=== PATIENT | female | born 1970 | race Caucasian/White ===

== ENCOUNTER 2016-12-04 18:05 | Emergency (ER) | payer MEDICAID, OTHER ==
[~2016-12-04] VITALS: Ht 154.9 cm; Wt 45.0 kg
[2016-12-04 18:10] VITALS: Ht 154.9 cm; Wt 45.0 kg
[2016-12-04] MEDS ORDERED: MINE133E23 PR (18:40)
[2016-12-04] MEDS ORDERED: POLY17PO6 PO (18:40)
--- NOTE | 2016-12-04 18:42 | ERD ---
ER Documentation Chief Complaint Date/Time DATE: 12/04/16 TIME: 18:41 Chief Complaint HARD STOOLS X 2 WEEKS HPI This 46-year-old female complains of 2 weeks of constipation. She says she tries to have bowel movements and has a lot of straining and passing some small balls of stool. No abdominal pain no rectal bleeding. She says she is staying hydrated. She has had this problem for times in the past before per ROS All systems reviewed and are negative except as per history of present illness. Medications Home Meds Active Scripts Polyethylene Glycol* (Miralax*) 17 Gm Powd.pack, 17 GM PO BID for cons, #60 PACKET Prov:LEKKOS,APOSTOLOS A. DO 12/04/16 Mineral Oil* (Fleet* Mineral Oil Enema) 133 Ml Oil, 133 ML NM NEEDED Y for CONSTIPATION, #2 ENEMA Prov:LEKKOS,APOSTOLOS A. DO 12/04/16 FmHx Family History: No coronary disease Physical Exam Vitals Vital Signs Date Time Temp Pulse Resp B/P Pulse Ox O2 Delivery O2 Flow Rate FiO2 12/04/16 18:10 98.0 98 18 127/61 99 Physical Exam Const: Well-developed, well-nourished Head: Atraumatic, normocephalic Eyes: Normal Conjunctiva, PERRLA, EOMI, normal sclera, no nystagmus ENT: Normal External Ears, Nose and Mouth, moist mucus membranes. Neck: Full range of motion. No meningismus, no lymphadenopathy. Resp: Clear to auscultation bilaterally, no wheezing, rhonchi, rales Cardio: Regular rate and rhythm, no murmurs, S1 S2 present Abd: Soft, non tender x 4, non distended. Normal bowel sounds, no guarding or rebound, no pulsitile abdominal masses or bruits Rectal: There is stool in the vault, no blood, no masses palpated Skin: No petechiae or rashes, no ecchymosis , no maculopapular rash Back: No midline or flank tenderness Ext: No cyanosis, or edema, FROM x 4, normal inspection, neurovascularly intact x 4 Neur: Awake and alert, STR 5/5 x 4, sensation intact x 4, no focal findings, cerebellum intact Psych: Normal Mood and Affect Procedures/MDM Treat with MiraLAX and Fleet enema Departure Diagnosis: Primary Impression: Constipation Constipation type: unspecified constipation type Qualified Code: K59.00 - Constipation, unspecified constipation type Condition: Stable Patient Instructions: Constipation (Adult) Referrals: NO PRIMARY,CARE PHYSICIAN (PCP) MIKE VALENCIA DO Dec 04, 2016 18:42
== END 2016-12-04 19:00 | disposition home or self-care (01) ==
LOC: FTE 18:05
DX: K59.00 Constipation, unspecified (principal)
CPT/HCPCS: 99283

== ENCOUNTER 2017-01-07 12:04 | Emergency (ER) | payer MEDICAID ==
[~2017-01-07] VITALS: Ht 157.5 cm; Wt 39.0 kg
[~2017-01-07 12:04] MED LIST: MINE133E23 PR; POLY17PO6 PO
[2017-01-07 12:08] VITALS: Ht 157.5 cm; Wt 39.0 kg
--- NOTE | 2017-01-07 13:05 | ERD ---
ER Documentation Chief Complaint Date/Time DATE: 01/07/17 TIME: 13:04 Chief Complaint LEFT HAND FEELS COLD TODAY, GOOD CAP REFILL HPI 46-year-old female with a history of seizures, stroke diabetes hyperlipidemia, presents with left arm and hand coldness that started at 8:30 PM last night, lasting for 30 seconds, on and off. Patient states that there is no eliciting factors to this, it developed spontaneously, and is intermittent. She has no numbness, weakness or pain. No history of seizures related to this. ROS All systems reviewed and are negative except as per history of present illness. Medications Home Meds Active Scripts Polyethylene Glycol* (Miralax*) 17 Gm Powd.pack, 17 GM PO BID for cons, #60 PACKET Prov:BRENTON VALENCIASTLINDA Watts. DO 12/04/16 Mineral Oil* (Fleet* Mineral Oil Enema) 133 Ml Oil, 133 ML MA NEEDED Y for CONSTIPATION, #2 ENEMA Prov:MIKE VALENCIA DO 12/04/16 PMhx/Soc History of Surgery: No Anesthesia Reaction: No Hx Neurological Disorder: Yes (TIA, Seizures) Hx Respiratory Disorders: No Hx Cardiac Disorders: No Hx Psychiatric Problems: No Hx Miscellaneous Medical Probl: Yes (DM, ) Hx Alcohol Use: No Hx Substance Use: No Hx Tobacco Use: No Smoking Status: Never smoker Physical Exam Vitals Vital Signs Date Time Temp Pulse Resp B/P Pulse Ox O2 Delivery O2 Flow Rate FiO2 01/07/17 12:08 99.3 102 18 121/63 99 Physical Exam General: Well-developed, well-nourished. The patient appears in no acute distress. HEENT: Head is normocephalic, atraumatic. No scleral icterus. Pupils are equal , round, and reactive. Oral mucous membranes are moist. No pharyngeal erythema. Neck: Supple. Nontender. Lungs: Clear to auscultation. Normal air movement. Heart: Regular rate and rhythm. S1 and S2 are normal. No murmurs, gallops, or rubs. Abdomen: Soft, nontender, nondistended. Bowel sounds are normoactive. Extremities: No clubbing or cyanosis. Normal pulses. Moving extremities x 4. No weakness. No cyanosis, capillary refill less than 2 seconds to both 6 extremities upper and lower. She has no lymphatic streaking, no erythema. There is no warmth, no edema. Neurologic: Alert and oriented 3. No focal deficits. Speech and gait normal. Cranial nerves II 12 grossly intact. Strength upper extremities and lower extremities 5 out of 5 bilaterally. Skin: Normal turgor. No rash or lesions. Results 24 hrs Laboratory Tests Test 01/07/17 13:27 Bedside Glucose 208mg/dL 12-lead EKG(interpreted by supervising physician): by Dr Gardiner Rate/Rhythm: Normal Sinus Rhythm, rate of 86 QRS, ST, T-waves: No changes consistent w/ acute ischemia, no intervals, no dysrhythmias, no ectopy Impression: No evidence of ischemia or arrhythmia DIAGNOSTIC IMAGING REPORT Patient: ARTURO BUNN : 1970 Age: 46 Sex: F MR #: [id number] [facility] #: [id number] DOS: 01/07/17 1247 Ordering MD: TRINI CARRERA PA-C Location: [facility] Room/Bed: PROCEDURE: CT head without intravenous contrast CLINICAL INDICATION: Left arm cold temperature paresthesias. COMPARISON: None relevant listed. TECHNIQUE: Axial CT images from skull base to vertex with coronal and sagittal reformats. DOSE: The estimated administered radiation dose was CTDI vol = 45 mGy. DLP = 720 mGy-cm. One or more of the following dose reduction techniques were used: automated exposure control, adjustment of the mA and/or kV according to patient size, or use of iterative reconstruction. FINDINGS: Parenchyma: Old infarction in the right parietal and temporal lobes as well as the left superior temporal gyrus. Large amount of periventricular and subcortical white matter hypodensity, a nonspecific finding often associated with chronic microangiopathy. Ventricles: Moderate generalized volume with proportionate ex vacuo ventricular dilation. Extra-axial spaces: No herniation or midline shift. Paranasal sinuses: Clear. Mastoids and middle ears: Clear. Visualized orbits: Normal. Vessels: No calcified atherosclerotic arterial plaque identified. Bones: Normal. Extracranial soft tissues: Normal. Additional comment: None. IMPRESSION: 1. 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 2. Large amount of white matter changes, a nonspecific finding often associated with chronic microangiopathy. 3. Senescent changes characterized by volume loss. If there is high clinical suspicion for infarction, MRI would provide additional information. RPTAT: PP Physician Kristi Date Time Electronically viewed and signed by Physician Kristi on 01/07/2017 15: 04 LG/ DIAGNOSTIC IMAGING REPORT Patient: ARTURO BUNN : 1970 Age: 46 Sex: F MR #: [id number] DOS: 01/07/17 1247 Ordering MD: TRINI CARRERA PA-C Location: [facility] Room/Bed: PROCEDURE: Chest Radiograph. CLINICAL INDICATION: Cough. TECHNIQUE: Single frontal chest radiograph. COMPARISON: None available FINDINGS: The cardiomediastinal silhouette is within normal limits. No infiltrate or effusion is seen. The bones are intact. IMPRESSION: 1. Unremarkable chest radiograph. RPTAT: KK .Franklyn Desouza MD, MD Date Time Electronically viewed and signed by .Franklyn Desouza MD, on 2016 13:38 .B/ CC: TRINI CARRERA PA-C Procedures/MDM 46-year-old female presents with paresthesias, she feels a cold sensation to her left upper extremity. Patient presents with a normal EKG, normal chest x- ray, she has hyperglycemia however unlikely diabetic ketoacidosis. CT scan of the head was obtained shows old infarcts, and history is not concerning for TIA or stroke. There is no evidence of acute intra-cranial hemorrhage, mass-effect , or acute ischemia. Symptoms began at 830 last night and has been lasting for approximately 30 seconds intermittently, this is likely a peripheral process, peripheral paresthesias secondary to possible vascular disease, or neuropathy. She has good pulses her upper extremities, good color and no swelling, there are no signs of any arterial occlusion, or DVT. She is provided copies, and asked me also follow-up with her primary care doctor this week. Patient's blood pressure was elevated (>120/80) but appears stable without evidence of hypertension emergency or urgency. The patient was counseled about the risks of hypertension and urged to pursue outpatient monitoring and therapy within a week with their primary care physician. Departure Diagnosis: Primary Impression: Paresthesias Condition: Good TRINI CARRERA PA-C Jan 07, 2017 13:05
--- NOTE | 2017-01-07 13:38 | RADRPT ---
PROCEDURE: Chest Radiograph. CLINICAL INDICATION: Cough. TECHNIQUE: Single frontal chest radiograph. COMPARISON: None available FINDINGS: The cardiomediastinal silhouette is within normal limits. No infiltrate or effusion is seen. Th e bones are intact. IMPRESSION: 1. Unremarkable chest radiograph. RPTAT: KK .Franklyn Desouza MD, MD Date Time Electronically viewed and signed by .Franklyn Desouza MD, on 01/07/2017 13:38 .B/
--- NOTE | 2017-01-07 15:05 | RADRPT ---
PROCEDURE: CT head without intravenous contrast CLINICAL INDICATION: Left arm cold temperature paresthesias. COMPARISON: None relevant listed. TECHNIQUE: Axial CT images from skull base to vertex with coronal and sagittal reformats. DOSE: The estimated administered radiation dose was CTDI vol = 45 mGy. DLP = 720 mGy-cm. One or mor e of the following dose reduction techniques were used: automated exposure control, adjustment of th e mA and/or kV according to patient size, or use of iterative reconstruction. FINDINGS: Parenchyma: Old infarction in the right parietal and temporal lobes as well as the left superior tem poral gyrus. Large amount of periventricular and subcortical white matter hypodensity, a nonspecific finding often associated with chronic microangiopathy. Ventricles: Moderate generalized volume with proportionate ex vacuo ventricular dilation. Extra-axial spaces: No herniation or midline shift. Paranasal sinuses: Clear. Mastoids and middle ears: Clear. Visualized orbits: Normal. Vessels: No calcified atherosclerotic arterial plaque identified. Bones: Normal. Extracranial soft tissues: Normal. Additional comment: None. IMPRESSION: 1. 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 2. Large amount of white matter changes, a nonspecific finding often associated with chronic microan giopathy. 3. Senescent changes characterized by volume loss. If there is high clinical suspicion for infarction, MRI would provide additional information. RPTAT: PP Physician Kristi Date Time Electronically viewed and signed by Physician Kristi on 01/07/2017 15:04 /
[2017-01-07 15:47] VITALS: BP 122/73; PULSE 89; RESP 18; TEMP 98
== END 2017-01-07 15:50 | disposition home or self-care (01) ==
LOC: FTE 12:04
DX: R20.2 Paresthesia of skin (principal); E11.9 Type 2 diabetes mellitus without complications; M79.642 Pain in left hand
CPT/HCPCS: 70450; 71010; 82962; 93005; Z7502